=== PATIENT | female | born 1995 | race Caucasian/White ===

== ENCOUNTER 2023-03-10 10:03 | Outpatient (AMB) | payer OTHER, SELFPAY ==
--- NOTE | 2023-03-10 10:04 | MHC.PC.OV ---
Vital Signs 03/10/23 10:05 Height 5 ft 8 in Weight 142 lb BMI 21.6 BP 118/66 Blood Pressure Location Lt brachial Position Sitting Pulse 77 Pulse Source Pulse Oximeter Pulse Oximetry (%) 99 Oxygen Delivery Method Room Air Intake Visit Reasons: New patient-Type 1 Diabetic Intake Note: Patient is here as type 1 diabetic. 6.7 on 03/02, at [facility]. Is last menstrual period known: No ( control) Allergies No Known Allergies Allergy (Verified 03/10/23 10:10) Medication List - Last Reconciled 03/10/23 by Louie Marr MD blood-glucose sensor (Dexcom G6 Sensor device) As directed cetirizine (Zyrtec) 10 mg PO DAILY PRN glucagon mg subcut insulin lispro (Humalog U-100 Insulin) 1 sliding scale dose subcut USEASDIRECTD levonorgestrel (Liletta) intrauterine linaclotide (Linzess) 145 mcg PO DAILY lorazepam 0.5 mg PO BEDTIME PRN Tobacco use date assessed: 03/10/23 Dental Screening Dental Screen Date: 03/10/23 Did you have a dental visit in the last 12 months?: Yes Did you have a dental problem in the last 6 months where you did not have access to dental care?: No Was dental information given to patient?: Patient has dentist HPI New patient-Type 1 Diabetic HPI Details New patient Prior PCP:Jose Last office visit/CPE: 1 yr ago Acute issue(s): Type 1 diabetes -Followed by [facility] endo A1c 6.7% Depression/anxiety and did well on bupropion 150 but decreased appetite/BS. More anxiety than depression. Stomach pain. [facility] Trialing Linzess. Testing neg for gastroparesis thus far PMHx: Type 1 diabetes, GERD, palpitations, Anxiety/depression, fractured pelvis, lupus Dr. Costello getting new breadman at [facility] SurgHx: Cardiac ablation for SVT. x2. L pelvis 2013 Orif. Orif R wrist. Cyst removal neck. Breast FHx: Mom: Lupus. Dad. CAD, MIs in 50s, HTN, DM2, HLD. pGF: Throat CA SocHx: Smoked 1 ppd x4 years quit 2020. EtOH 1-2 per yr. No drugs. [facility] Medical History (Updated 03/10/23 @ 10:48 by James Barksdale) Anxiety Broken wrist Depression Fractured pelvis GERD (gastroesophageal reflux disease) Lupus Migraines Palpitations Type 1 diabetes Surgical History (Updated 03/10/23 @ 10:22 by Kelley Suarez [facility]) H/O breast augmentation H/O removal of neck cyst History of cardiac radiofrequency ablation Previous section Family History (Updated 03/10/23 @ 10:24 by Kelley Suarez [facility]) Mother Lupus Father Coronary disease Type 2 diabetes mellitus Social History (Updated 03/10/23 @ 10:26 by Kelley Suarez [facility]) Household Members: Family Both parents involved: No Caregiver staying overnight: No Housing: House Are you a primary daycare director to a significant other at home: No Do you presently have visiting nurse or other home services: No 75 years or older and lives alone: No Alcohol intake: current Patient Tobacco Use Status: Former Tobacco user Years Smoked: Quit 2020 e-Cigarette/Vaping Use: Never Used Special debby needs: No service: No Current occupational status: employed Current occupation: MA at [employer] Cognitive needs: No Hearing needs: No Vision needs: No Questionnaire PHQ-9 Over the last 2 weeks, how often have you been bothered by any of the following problems? 1. Little interest or pleasure in doing things: more than half the days 2. Feeling down, depressed, or hopeless: more than half the days 3. Trouble falling or staying asleep, or sleeping too much: not at all 4. Feeling tired or having little energy: several days 5. Poor appetite or overeating: not at all 6. Feeling bad about yourself - or that you are a failure or have let yourself or your family down: not at all 7. Trouble concentrating on things, such as reading the newspaper or watching television: several days 8. Moving or speaking so slowly that other people could have noticed. Or the opposite - being so fidgety or restless that you have been moving around a lot more than usual: nearly every day 9. Thoughts that you would be better off or of hurting yourself in some way: not at all Total score: 9 Source: Developed by Drs. Micheal Jose, Haley Urias, Efren Lima and colleagues, with an educational jose luis from [employer]. Thrive Questionnaire I am a: Patient What is your living situation today?: I have a steady place to live Within the past 12 months, did the food you bought not last and you didn't have the money to get more?: Never true Within the past 12 months, did you worry whether your food would run out before you got money to buy more?: Never true Do you have trouble paying for medicines?: No Do you have trouble getting transportation to medical appointments?: No Do you have trouble paying your heating and electricity bill?: No Do you have trouble taking care of your child, family member or friend?: No Do you have trouble with day-to-day activities such as bathing, preparing meals, shopping, managing finances, etc.?: No Are you currently unemployed and looking for a job?: No Are you interested in more education?: No AUDIT C Alcohol Use Questionnaire (AUDIT-C) 1. How often do you have a drink containing alcohol?: Monthly or less 2. How many drinks containing alcohol do you have on a typical day when you are drinking?: 1 or 2 3. How often do you have six or more drinks on one occasion?: Never Total Score: 1 EVELYNE-7 AMB Questionnaire EVELYNE-7 Date EVELYNE - 7 assessed: 03/10/23 Feeling nervous, anxious, or on edge: 3 = Nearly every day Not being able to stop or control worryin = Nearly every day Worrying too much about different things: 3 = Nearly every day Trouble relaxin = Nearly every day Being so restless that it is hard to sit still: 3 = Nearly every day Becoming easily annoyed or irritable: 3 = Nearly every day Feeling afraid as if something awful might happen: 0 = Not at all Total EVELYNE-7 score (0-4 normal; 5-9 mild; 10-14 moderate; 15-21 severe): 18 Source: Developed by Drs. Micheal Jose, Haley Urias, Efren Lima and colleagues, with an educational jose luis from [employer]. Review of Systems Const Denies chills, Denies fatigue, Denies fever(s), Denies headache(s) and Denies weakness ENT Denies dizziness and Denies headache(s) Card Denies chest pain, Denies lightheadedness, Denies dyspnea and Denies other (Palpitations) Resp Denies cough, Denies dyspnea, Denies wheezing and Denies other ( shortness of breath) Musc Denies numbness and Denies tingling Neuro Denies dizziness, Denies headache(s), Denies numbness, Denies tingling, Denies paresthesias and Denies weakness Psych Reports anxiety and Reports depression Endo Denies fatigue Aller/Immun Denies wheezing Physical exam (Primary Care) Vital Signs: Last Vital Signs Pulse 77 03/10/23 10:05 BP 118/66 03/10/23 10:05 Pulse Ox 99 03/10/23 10:05 Oxygen Delivery Method Room Air 03/10/23 10:05 BMI result Body Mass Index 21.6 Tobacco/Smoking Status: Tobacco use Status Tobacco use date assessed 03/10/23 03/10/23 10:32 Patient Tobacco Use Status Former Tobacco user 03/10/23 10:32 e-Cigarette/Vaping Use Never Used 03/10/23 10:32 PHQ-9: PHQ-9 Score PHQ-9: Total score 9 03/10/23 10:32 Const General: no acute distress and well developed Nutritional Appearance: well nourished Orientation/consciousness: patient oriented x3 HENMT Head: Yes normocephalic and Yes atraumatic Eyes General: appearance normal, both eyes and all related structures Pupils: Equal, round and reactive pupils present EOM: EOMs intact bilaterally Resp Effort & Inspection: normal respiratory effort Auscultation: clear to auscultation bilaterally Cardio Rate: regular rate Rhythm: regular rhythm Heart sounds: S1 normal heart sound present, S2 normal heart sound present, no gallops, no murmurs and no rubs Neuro General: patient oriented x3 and gait normal Cranial nerves: Yes Equal, round and reactive pupils present Psych Affect: normal affect Assessment and Plan Assessment & Plan (1) Type 1 diabetes: Code(s): E10.9 - Type 1 diabetes mellitus without complications Plan: Managed by [facility] endocrinology. Most recent A1c showed good control. Patient's blood sugar was getting low during office visit and she was given 8 g glucose tablets which resolved the issue. Continue current medication regimen Check labs Follow-up with [facility] endocrinology (2) Lupus: Code(s): M32.9 - Systemic lupus erythematosus, unspecified Plan: Currently sees Rheumatology at [facility] but has an appointment with [facility] Rhe[facility]. Will follow along (3) Depression with anxiety: Code(s): F41.8 - Other specified anxiety disorders Plan: Patient would like to trial mirtazapine Can use lorazepam episodically. (4) Abdominal pain: Code(s): R10.9 - Unspecified abdominal pain Plan: Hydrate well Continue Linzess Trial soluble fiber tablet Continue to follow-up with GI as recommended (5) SVT (supraventricular tachycardia): Code(s): I47.1 - Supraventricular tachycardia Plan: History of SVT and ablation. She now notes recurrent SVT. By exam today, regular rate and rhythm Follow-up with Cardiology as recommended (6) History of smoking: Code(s): Z87.891 - Personal history of nicotine dependence Plan: No longer smokes (7) Laboratory exam ordered as part of routine general medical examination: Code(s): Z00.00 - Encounter for general adult medical examination without abnormal findings Plan: Check labs Orders: Orders Comprehensive Stuart. Panel Fast Today Z00.00 - Encounter for general adult medical examination without abnormal findings Lipid Panel Today Z00.00 - Encounter for general adult medical examination without abnormal findings TSH reflex Free T4 Today Z00.00 - Encounter for general adult medical examination without abnormal findings Microalbumin, Random (w Creat) Today I10 - Essential (primary) hypertension Hepatitis B,C Profile Today Z11.3 - Encounter for screening for infections with a predominantly sexual mode of transmission HIV Ab/Ag Today Z11.3 - Encounter for screening for infections with a predominantly sexual mode of transmission Syphilis Screen Today Z11.3 - Encounter for screening for infections with a predominantly sexual mode of transmission UA and rflx microscopic Today Z00.00 - Encounter for general adult medical examination without abnormal findings Complete Blood Count Auto Diff Today Z00.00 - Encounter for general adult medical examination without abnormal findings CT NG by PCR Today Z11.3 - Encounter for screening for infections with a predominantly sexual mode of transmission Medications: New mirtazapine 7.5 mg PO BEDTIME 30 days 30 tabs 2RF lorazepam 0.5 mg PO BEDTIME 28 days PRN 7 tabs 0RF anxiety calcium polycarbophil (FiberCon) 625 mg PO DAILY 30 days 30 tabs 2RF Coding Level of Care Code New Pt Level 4 ([id number]) Diagnoses Type 1 diabetes E10.9 Lupus M32.9 Depression with anxiety F41.8 Abdominal pain R10.9 SVT (supraventricular tachycardia) I47.1 History of smoking Z87.891 Laboratory exam ordered as part of routine general medical examination Z00.00
[2023-03-10 10:05] VITALS: BP 118/66; PULSE 77; O2SAT 99; BMI 21.6
== END 2023-03-10 10:59 | disposition home or self-care (01) ==
PROVIDERS: PCP Family Medicine; Visit Provider Family Medicine
DX: E10.9 Type 1 diabetes mellitus without complications (principal); M32.9 Systemic lupus erythematosus, unspecified; F41.8 Other specified anxiety disorders; Z87.891 Personal history of nicotine dependence; I47.1 Supraventricular tachycardia; R10.9 Unspecified abdominal pain
CPT/HCPCS: 99204